=== PATIENT | female | born 1955 | race Caucasian/White ===

== ENCOUNTER 2018-01-02 13:44 | Outpatient (CLI) | payer MEDICARE ==
--- NOTE | 2018-01-02 14:30 | RAD ---
2 VIEWS CHEST: Date: 01/02/18 COMPARISON: None. HISTORY: Chest congestion for 6 days. FINDINGS: Two views of the chest show normal sized cardiomediastinal silhouette. There is no evidence of consol idation, mass, or pleural effusion. The bones are unremarkable. IMPRESSION: No evidence of acute cardiopulmonary disease. POS: [facility]
== END 2018-01-02 13:45 | disposition home or self-care (01) ==
LOC: MADRAD 13:44
PROVIDERS: ATTEND Physician Assistant
DX: R09.89 Other specified symptoms and signs involving the circulatory and respiratory systems (principal)
CPT/HCPCS: 71046

== ENCOUNTER 2018-01-03 13:05 | Emergency (ER) | payer MEDICARE ==
[2018-01-03] MEDS ORDERED: predniSONE 20 MG TAB ONE (13:41)
[2018-01-03] MEDS ORDERED: Levalbuterol HCl 0.63 MG/3 ML NEB ONE (13:42)
[2018-01-03] MEDS ORDERED: Albuterol Sulfate 2.5 mg/0.5 ml Neb ONE (13:42)
--- NOTE | 2018-01-03 15:18 | RAD ---
TWO VIEWS CHEST: Date: 01-03-18 Provided Clinical History: Shortness of breath. FINDINGS: Comparison 01-02-18. Cardiac and mediastinal silhouette is unchanged in appearance. Vascular calcification involves the ao rtic arch. No focal consolidation, pleural fluid, or pneumothorax apparent. IMPRESSION: No evidence for an acute cardiopulmonary process. POS: [facility]
== END 2018-01-03 15:20 | disposition home or self-care (01) ==
LOC: MADERS 13:05
DX: J44.1 Chronic obstructive pulmonary disease with (acute) exacerbation (principal); I11.0 Hypertensive heart disease with heart failure; I50.9 Heart failure, unspecified
CPT/HCPCS: 71046; 93005; J7506; J7611; J7614; J7620